=== PATIENT | male | born 1945 | race Caucasian/White ===

== ENCOUNTER 2016-04-28 22:44 | Emergency (ER) | payer MEDICARE, OTHER ==
[~2016-04-28] VITALS: Ht 167.6 cm; Wt 57.5 kg
[~2016-04-28 22:44] MED LIST: ACYC400T2 PO; ASPI-664 PO; ATOR40TA68 PO; CILO50TA PO; CLOP75TA27 PO; FINA5TAB4 PO; FURO20TA PO; MELO-110 PO; OMEP20CA16 PO; PARO30TA68 PO; TAMS0.4C2 PO
[2016-04-28 22:52] VITALS: Ht 167.6 cm; Wt 57.5 kg
--- NOTE | 2016-04-28 23:34 | ERA ---
ER Documentation Chief Complaint Date/Time DATE: 04/28/16 TIME: 23:31 Chief Complaint active mouth bleeding x 1 hour. states was eating apple. HPI 71-year-old male who accidentally bit his tongue and has small bleeding from the tongue site. He was eating an apple for approximately 1 hour prior to arrival. The patient is taking Plavix secondary to a stent in the heart. The patient has oozing from the tongue and has not been able to get it to stop. He denies any other bruising or bleeding, he denies any decreased sensation, no difficulty breathing and no aspiration event. ROS All systems reviewed and are negative except as per history of present illness. Medications Home Meds Reported Medications Acyclovir* (Acyclovir*) 400 Mg Tablet, 400 MG PO BID, TAB 11/17/15 Cilostazol* (Cilostazol*) 50 Mg Tablet, 50 MG PO BID, TAB 11/17/15 Clopidogrel Bisulfate (Clopidogrel) 75 Mg Tablet, 75 MG PO DAILY, #30 TAB 11/17/15 Paroxetine Hcl* (Paroxetine*) 30 Mg Tablet, 30 MG PO HS, TAB 09/14/15 Aspirin* (Aspirin* (EC)) 81 Mg Tablet.dr, 81 MG PO DAILY, TAB 09/14/15 Omeprazole* (Omeprazole*) 20 Mg Capsule.dr, 20 MG PO DAILY, #30 CAP 09/14/15 Atorvastatin* (Atorvastatin*) 40 Mg Tablet, 20 MG PO QHS, #30 TAB 09/14/15 Furosemide* (Lasix*) 20 Mg Tablet, 20 MG PO DAILY, TAB 09/14/15 Finasteride* (Finasteride*) 5 Mg Tablet, 5 MG PO DAILY, TAB 09/14/15 Meloxicam* (Mobic*) 15 Mg Tablet, 15 MG PO DAILY, #30 TAB 09/14/15 Tamsulosin Hcl* (Tamsulosin Hcl*) 0.4 Mg Cap.er.24h, 0.4 MG PO HS, CAP 09/14/15 Allergies Allergies: Coded Allergies: No Known Allergy (Unverified , 04/28/16) PMhx/Soc History of Surgery: Yes (heart cath previously) Anesthesia Reaction: No Hx Neurological Disorder: No Hx Respiratory Disorders: No 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 Eyes: EOM intact ENT: Moist mucous membranes, abrasion noted to the right side of the tongue, no significant laceration but moderate oozing, no significant hematoma, tolerating secretions, Neck: Full ROM Respiratory: No respiratory distress Cardiovascular: Good capillary refil Abdominal: Nondistended : Deferred MSK: No edema, no unilateral swelling, 5/5 strength Neurologic: Alert and oriented, moving all extremities, normal speech, steady gait Skin: No rash Psych: Normal mood Procedures/MDM The patient has evidence of an abrasion to the tongue secondary to tongue bite. The patient has no evidence of systemic hemorrhage or coagulopathy. This is likely related to the patient's platelet and activity secondary to Plavix. I believe at this time the risks outweigh the benefits for DDAVP given that the patient has a stent, only minimal bleeding and no life-threatening bleeding. A small amount of Surgicel was applied to the area and gauze was applied and the patient was advised to obtain direct pressure. There is no indication for laceration repair given that there is no laceration. The patient is tolerating secretions, no evidence of aspiration, only very mild amount of bleeding is noted. At this time I feel the patient can be safely discharged home with instructions for direct pressure and return precautions for worsening bleeding. If the patient still has bleeding tomorrow I would consider the use of DDAVP however at this time again, I feel that the risks outweigh the benefits. The patient is safe for discharge and otherwise extremely well-appearing. Departure Diagnosis: Primary Impression: Abrasion of tongue Qualified Code: S00.512A - Abrasion of tongue, initial encounter Condition: Stable Patient Instructions: Abrasion Referrals: COMMUNITY CLINICS YOU HAVE RECEIVED A MEDICAL SCREENING EXAM AND THE RESULTS INDICATE THAT YOU DO NOT HAVE A CONDITION THAT REQUIRES URGENT TREATMENT IN THE EMERGENCY DEPARTMENT. FURTHER EVALUATION AND TREATMENT OF YOUR CONDITION CAN WAIT UNTIL YOU ARE SEEN IN YOUR DOCTORS OFFICE WITHIN THE NEXT 1-2 DAYS. IT IS YOUR RESPONSIBILITY TO MAKE AN APPOINTMENT FOR FOLOW-UP CARE. IF YOU HAVE A PRIMARY DOCTOR --you should call your primary doctor and schedule an appointment IF YOU DO NOT HAVE A PRIMARY DOCTOR YOU CAN CALL OUR PHYSICIAN REFERRAL HOTLINE AT IF YOU CAN NOT AFFORD TO SEE A PHYSICIAN YOU CAN CHOSE FROM THE FOLLOWING [facility] [address] [place] [facility] [address] [place] [facility] [address] [facility] [address] [facility] [address] [facility]. [facility] [address] [facility]. [facility] YOU HAVE RECEIVED A MEDICAL SCREENING EXAM AND THE RESULTS INDICATE THAT YOU DO NOT HAVE A CONDITION THAT REQUIRES URGENT TREATMENT IN THE EMERGENCY DEPARTMENT. FURTHER EVALUATION AND TREATMENT OF YOUR CONDITION CAN WAIT UNTIL YOU ARE SEEN IN YOUR DOCTORS OFFICE WITHIN THE NEXT 1-2 DAYS. IT IS YOUR RESPONSIBILITY TO MAKE AN APPOINTMENT FOR FOLOW-UP CARE. IF YOU HAVE A PRIMARY DOCTOR --you should call your primary doctor and schedule and appointment IF YOU DO NOT HAVE A PRIMARY DOCTOR YOU CAN CALL OUR PHYSICIAN REFERRAL HOTLINE AT . IF YOU CAN NOT AFFORD TO SEE A PHYSICIAN YOU CAN CHOSE FROM THE FOLLOWING [facility] INSTITUTIONS: [facility] [address] [place] [address] [facility] [address] [place] [address] [facility] [address] [place] [address] Additional Instructions: Try to apply direct pressure to the abrasion on the tongue. Return for worsening bleeding or difficulty sleeping because of the bleeding. ROBERT FERNÁNDEZ MD Apr 28, 2016 23:34
== END 2016-04-29 00:25 | disposition home or self-care (01) ==
LOC: E/R 22:44
DX: S00.512A Abrasion of oral cavity, initial encounter (principal); F17.210 Nicotine dependence, cigarettes, uncomplicated; W26.9XXA Contact with unspecified sharp object(s), initial encounter; Y92.9 Unspecified place or not applicable; Z79.82 Long term (current) use of aspirin; Z98.61 Coronary angioplasty status
CPT/HCPCS: 99282